=== PATIENT | female | born 1930 | race Caucasian/White ===

== ENCOUNTER → 2016-09-17 | Emergency (ER) | payer MEDICARE ==
[~2016-09-17] MED LIST: AMARYL2 MG PO; CALTRATE 600+D1 EAC1 PO; CENTRUM SILVER1 TAB PO; DEXILANT60 MG PO; FISH OIL1000 MG PO; GLUCOSAMINE CO1 EAC1 PO; NEURONTIN600 MG PO; OCUVITE SOFTGE1 EACH PO; PROBIOTIC & AC1 EACH PO; TRADJENTA5 MG PO; ULTRAM50 MG PO; VESICARE10 MG PO; VITAMIN B12-FO1 EACH PO; VITAMIN D1000 UNIT PO; ZOCOR40 MG PO
== END | disposition disaster alternative care site (69) ==
LOC: GAMB 09:21
DX: R53.1 Weakness (principal)

== ENCOUNTER → 2016-11-03 | Outpatient (CLI) | payer MEDICARE | END | disposition disaster alternative care site (69) | LOC: GBCOE 13:57 | DX: Z78.0 Asymptomatic menopausal state (principal); M85.832 Other specified disorders of bone density and structure, left forearm; M85.88 Other specified disorders of bone density and structure, other site ==